=== PATIENT | male | born 1980 | race Caucasian/White ===

== ENCOUNTER 2018-02-14 20:33 | Inpatient (IN) | payer SELFPAY ==
[~2018-02-14] VITALS: Ht 182.9 cm; Wt 74.4 kg
[~2018-02-14 20:33] MED LIST: APRISO0.375 GM PO; Asacol PO; Bentyl PO; FLAGYL500 MG PO; Flora-Q,Risaquad PO; SUBOXONE 8 MG-1 EAC2 SL; Suboxone 8 mg-2 mg SL; VANCOMYCIN HCL125 MG PO; Vancocin PO
[2018-02-14 20:56] LABS: HEMATOCRIT 43.2 % (38.0-50.0); HEMOGLOBIN 14.1 G/DL (12.5-16.6); MCH 26.7 PG (29.0-34.0); MCHC 32.6 G/DL (30.0-36.0); MCV 81.7 FL (86-99); PLATELET COUNT 376 K/uL (156-360); RBC DIS.WIDTH-CV 12.7 % (11.8-14.6); RBC DIS.WIDTH-SD 37.7 % (39-53); RED BLOOD COUNT 5.29 M/uL (4.00-5.50); WHITE BLOOD COUNT 13.5 K/uL (4.1-10.2)
[2018-02-14 21:08] LABS: CHLORIDE 101 mEq/L (99-109); POTASSIUM 3.9 mEq/L (3.7-5.4); SODIUM 139 mEq/L (136-147)
[2018-02-14 21:10] LABS: GLUCOSE 97 mg/dL (70-99)
[2018-02-14 21:13] LABS: SERUM ETHYL ALCOHOL < 10 mg/dL
[2018-02-14 21:14] LABS: CREATININE 0.9 mg/dL (0.6-1.3); GFR ESTIMATE (CALCULATED) > 59 mL/min/ (58.99-99999)
[2018-02-14 21:15] LABS: UREA NITROGEN (BUN) 19 mg/dL (9-23)
[2018-02-14 22:55] LABS: APPEARANCE CLEAR ((CLEAR)); BILIRUBIN NEGATIVE; BLOOD NEGATIVE; COLOR YELLOW ((YELLOW)); GLUCOSE (STRIP) NEGATIVE; KETONES 20; LEUKOCYTES NEGATIVE; NITRITE NEGATIVE; PROTEIN (STRIP) 30; SPECIFIC GRAVITY 1.013 (1.000-1.030); UCUL ADDED? NO; UROBILINOGEN 0.2 MG/DL (0.2-1.0)
[2018-02-14 23:50] LABS: AMPHETAMINE NEGATIVE (500 ng/mL); BARBITURATES NEGATIVE (200 ng/mL); BENZODIAZEPINES NEGATIVE (150 ng/mL); BUPRENORPHINE NEGATIVE (10 ng/mL); COCAINE PRESUMPTIVE POSITIVE (150 ng/mL); METHADONE NEGATIVE (200 ng/mL); METHAMPHETAMINE NEGATIVE (500 ng/mL); OPIATES (MORPHINE) PRESUMPTIVE POSITIVE (100 ng/mL); OXYCODONE NEGATIVE (100 ng/mL); PHENCYCLIDINE NEGATIVE (25 ng/mL); PROPOXYPHENE NEGATIVE (300 ng/mL); THC CANNABINOIDS NEGATIVE (50 ng/mL); TRICYCLIC ANTIDEPRESSANTS NEGATIVE (300 ng/mL)
[2018-02-15] MEDS ORDERED: PAROXETINE HCL10 MG PO (02:36)
[2018-02-15 07:31] VITALS: BP 113/66
[2018-02-15 15:57] VITALS: BP 111/64
[2018-02-16 08:07] VITALS: BP 121/74
[2018-02-16 15:39] VITALS: BP 107/51
[2018-02-17 08:03] VITALS: BP 96/52
== END 2018-02-17 12:12 | disposition home or self-care (01) | DRG 882 ==
LOC: EME 20:33 → EDOF 22:35 → 1WEST 22:35 → ENRESERV 02-15 01:48 → 1WEST 02-15 02:34
PROVIDERS: Emergency Medicine
DX: F43.23 Adjustment disorder with mixed anxiety and depressed mood (principal); F11.23 Opioid dependence with withdrawal; T40.1X2A Poisoning by heroin, intentional self-harm, initial encounter; T40.5X2A Poisoning by cocaine, intentional self-harm, initial encounter; H04.209 Unspecified epiphora, unspecified side; J34.89 Other specified disorders of nose and nasal sinuses; F14.10 Cocaine abuse, uncomplicated
CPT/HCPCS: 80048; 81003; 84999; 85027; 90839; 97150 GO; 97165 GO; 99281; 99285; G0480; J0572; J0574; Q0177